=== PATIENT | male | born 1955 | race Caucasian/White ===

== ENCOUNTER → 2019-09-29 | Outpatient (CLI) | payer OTHER | END | disposition home or self-care (01) | LOC: PLD 14:14 → LAB SHORT 14:14 | DX: D17.22 Benign lipomatous neoplasm of skin and subcutaneous tissue of left arm (principal) | CPT/HCPCS: 88305 ==

== ENCOUNTER 2020-02-24 11:17 | Emergency (ER) | payer OTHER ==
[~2020-02-24] VITALS: Ht 160 cm; Wt 90.7 kg
[2020-02-24] MEDS ORDERED: Prinivil10 MG PO (11:48)
[2020-02-24] MEDS ORDERED: Aspir 8181 MG PO (11:48)
[2020-02-24] MEDS ORDERED: CEPH500 PO (12:19)
[2020-02-24] MEDS ORDERED: HYDR1TAB94 PO (12:19)
== END 2020-02-24 12:26 | disposition home or self-care (01) ==
LOC: ER 11:17
DX: L02.211 Cutaneous abscess of abdominal wall (principal); I10 Essential (primary) hypertension; Z79.899 Other long term (current) drug therapy; Z79.82 Long term (current) use of aspirin
CPT/HCPCS: 10060; 99282-25; A9270